=== PATIENT | female | born 1955 | race Caucasian/White ===

== ENCOUNTER 2019-03-02 17:08 | Emergency (ER) | payer MEDICAID ==
--- NOTE | 2019-03-02 17:33 | EDM.PDOC ---
ED HPI GENERAL MEDICAL PROBLEM - General Chief Complaint: Chest Pain Stated Complaint: CHEST PAIN AND SHORTNESS OF BREATH Time Seen by Provider: 03/02/19 17:17 - History of Present Illness INITIAL COMMENTS - FREE TEXT/NARRATIVE: HISTORY AND PHYSICAL: History of present illness: The patient is a 63-year-old female who has a history of insulin-requiring diabetes hypertension chronic pain and depression anxiety and who lives in [place] but who spent a week with her family in [place] and then came here to [place] where her daughter and son live to visit and has had a two-week history of low energy feeling depressed anxious intermittently having episodes of lightheadedness poor urine output poor by mouth intake feeling like her extremities are swollen and feeling on edge. The patient said that the whole week she was in [place] all she wanted to do was sleep and she had no energy and she says that when she left [place] to try to get refills on her prescriptions and was not able to get refills on a number of them. She says she has been out of her medication for depression and anxiety as well as some other of her medications since she left [place]. She tells me that she has a delivery coming from home with refills that she expects to arrive tomorrow. She says that she has had intermittent chest pressure and tightness which is bilateral associated with shortness of breath on and off for the last 2 weeks as well but she felt like it was worse today and her anxiety was getting more heightened with it. She has no abdominal pain but she has had some intermittent nausea and she's had no vomiting or diarrhea and then she says that she has had no dysuria frequency or urgency but she feels like she is not producing enough urine. She also tells me that she feels like her extremities are swollen especially her feet and toes. She has no leg size discrepancy no focal neurologic changes such as weakness numbness or tingling but overall feeling of generalized weakness and malaise. She says she is not dizzy but she is more lightheaded and she is not passing out or blacking out. She has no neck or back pain other than her chronic pain which when I ask her specifically where she says it is all over. She says that she normally is a smoker of a pack every 2 days and she says that since this is been going on she's been smoking less and less because she is sleeping more and more. Review of systems: As per history of present illness and below otherwise all systems reviewed and negative. Past medical history: As per history of present illness and as reviewed below otherwise noncontributory. Surgical history: As per history of present illness and as reviewed below otherwise noncontributory. Social history: No reported history of drug or alcohol abuse. Family history: As per history of present illness and as reviewed below otherwise noncontributory. Physical exam: General: Well-developed well-nourished overweight female who is nontoxic and vital signs are noted by me. She is very able to be redirected but intermittently she will get very anxious with her answers but she is polite cooperative and interactive. HEENT: Atraumatic, normocephalic, pupils reactive, negative for conjunctival pallor or scleral icterus, mucous membranes moist, throat clear, neck supple, nontender, trachea midline. Lungs: Clear to auscultation, breath sounds equal bilaterally, chest nontender. There is no worker breathing wheezing or stridor Heart: S1S2, regular rate and rhythm no overt murmur on my evaluation, negative for clicks, rubs, or JVD. Abdomen: Soft, nondistended, nontender. Negative for masses or hepatosplenomegaly. Negative for costovertebral tenderness. Bowel sounds are hypoactive and there is some tympany on percussion but no tenderness rebound or guarding Pelvis: Stable nontender. Genitourinary: Deferred. Rectal: Deferred. Extremities: Atraumatic, negative for cords or calf pain. Neurovascular unremarkable. There is no leg asymmetry and there is no pedal edema on my evaluation. Neuro: Awake, alert, oriented. Cranial nerves II through XII unremarkable. Cerebellum unremarkable. Motor and sensory unremarkable throughout. Exam nonfocal. Back: There are no midline step-offs tenderness or defects of the thoracic the lumbar spine no posterior rib or pelvis tenderness no CVA tenderness Skin: Turgor is normal and there are no overt rashes or lesions, the patient does have an overall pale appearance Diagnostics: EKG CBC CMP BNP troponin TSH UA with reflex chest x-ray Therapeutics: IV fluids, by mouth Ativan The daughter is now bedside and I have discussed our plan with her and she is very much in agreement. She says that she truly thinks that a lot of this has to do with the patient's lack of her anxiety medication which she is supposed to be getting tomorrow in the mail. She says that once she gets anxious a lot of other things kind of spiral with her mom. I did tell her and the patient that I could give her 1 dose of Ativan orally here at discharge as long as her testing results were within normal limits to try to help her to get through the rest of the evening. It appears from both the patient and the daughter that she does take Ativan for her anxiety at home Impression: Multiple vague complaints, generalized weakness and fatigue, anxiety, out of medications; mild dehydration Definitive disposition and diagnosis as appropriate pending reevaluation and review of above. generalized Pain Score (Numeric/FACES): 10 - Related Data Allergies Allergy/AdvReac Type Severity Reaction Status Date / Time Penicillins Allergy Cannot Verified 03/02/19 17:14 Remember Past Medical History Cardiovascular History: Reports: Heart Failure, Hypertension Respiratory History: Reports: COPD Gastrointestinal History: Reports: Chronic Diarrhea Musculoskeletal History: Reports: Back Pain, Chronic Psychiatric History: Reports: Anxiety Endocrine/Metabolic History: Reports: Diabetes, Type II - Infectious Disease History Infectious Disease History: Reports: Hepatitis C - Past Surgical History Female Surgical History: Reports: Tubal Ligation Other Musculoskeletal Surgeries/Procedures:: back surgery Social & Family History - Family History Family Medical History: Noncontributory ED ROS GENERAL - Review of Systems Review Of Systems: ROS reveals no pertinent complaints other than HPI. ED EXAM, GENERAL - Physical Exam Exam: See Below (See dictation) Course - Vital Signs Last Recorded V/S: Last Vital Signs Temp 36.0 C 03/02/19 17:14 Pulse 89 03/02/19 17:14 Resp 20 03/02/19 17:14 BP 113/53 L 03/02/19 17:14 Pulse Ox 97 03/02/19 17:14 - Orders/Labs/Meds Orders: Active Orders 24 hr Category Date Time Status Cardiac Monitoring [RC] . DIRECTED Care 03/02/19 17:27 Active EKG 12 Lead [EKG Documentation Completion] [RC] STAT Care 03/02/19 17:36 Active Pulse Oximetry [RC] ASDIRECTED Care 03/02/19 17:27 Active UA RFX SEBASTIEN AND CULT IF INDIC [URIN] Stat Lab 03/02/19 17:28 Ordered Sodium Chloride 0.9% [Normal Saline] 1,000 ml Med 03/02/19 18:48 Active IV STAT Sodium Chloride 0.9% [Saline Flush] Med 03/02/19 18:48 Active 10 ml FLUSH ASDIRECTED PRN Sodium Chloride 0.9% [Saline Flush] Med 03/02/19 18:48 Active 2.5 ml FLUSH ASDIRECTED PRN Saline Lock Insert [OM.PC] Stat Oth 03/02/19 18:47 Ordered Medication Orders Sodium Chloride (Normal Saline) 1,000 mls @ 999 mls/hr IV STAT ONE Stop: 03/02/19 19:48 Sodium Chloride (Saline Flush) 10 ml FLUSH ASDIRECTED PRN PRN Reason: Keep Vein Open Sodium Chloride (Saline Flush) 2.5 ml FLUSH ASDIRECTED PRN PRN Reason: Keep Vein Open Labs: Laboratory Tests 03/02/19 03/02/19 03/02/19 Range/Units 17:37 17:37 17:37 WBC 11.59 H (4.0-11.0) K/uL RBC 4.59 (4.30-5.90) M/uL Hgb 12.3 (12.0-16.0) g/dL Hct 37.8 (36.0-46.0) % MCV 82.4 (80.0-98.0) fL MCH 26.8 L (27.0-32.0) pg MCHC 32.5 (31.0-37.0) g/dL RDW Std Deviation 43.0 (28.0-62.0) fl RDW Coeff of Shmuel 14 (11.0-15.0) % Plt Count 279 (150-400) K/uL MPV 9.20 (7.40-12.00) fL Neut % (Auto) 48.5 (48.0-80.0) % Lymph % (Auto) 40.2 H (16.0-40.0) % [place] % (Auto) 8.5 (0.0-15.0) % Eos % (Auto) 2.4 (0.0-7.0) % Baso % (Auto) 0.4 (0.0-1.5) % Neut # (Auto) 5.6 (1.4-5.7) K/uL Lymph # (Auto) 4.7 H (0.6-2.4) K/uL [place] # (Auto) 1.0 H (0.0-0.8) K/uL Eos # (Auto) 0.3 (0.0-0.7) K/uL Baso # (Auto) 0.1 (0.0-0.1) K/uL Nucleated RBC % 0.0 /100WBC Nucleated RBCs # 0 K/uL Sodium 139 (136-145) mmol/L Potassium 3.4 L (3.5-5.1) mmol/L Chloride 103 (98-107) mmol/L Carbon Dioxide 23.0 (21.0-32.0) mmol/L BUN 20 H (7.0-18.0) mg/dL Creatinine 1.2 H (0.6-1.0) mg/dL Est Cr Clr Drug Dosing 43.74 mL/min Estimated GFR (MDRD) 45.5 ml/min Glucose 74 (74-106) mg/dL Calcium 9.6 (8.5-10.1) mg/dL Total Bilirubin 0.3 (0.2-1.0) mg/dL AST 21 (15-37) IU/L ALT 30 (14-63) IU/L Alkaline Phosphatase 133 H (46-116) U/L Troponin I < 0.050 (0.000-0.056) ng/mL B-Natriuretic Peptide 15 (<100) PG/ML Total Protein 7.7 (6.4-8.2) g/dL Albumin 3.9 (3.4-5.0) g/dL Globulin 3.8 (2.6-4.0) g/dL Albumin/Globulin Ratio 1.0 (0.9-1.6) TSH 3rd Generation 2.01 (0.36-3.74) uIU/mL Meds: Medications Generic Name Dose Route Start Last Admin Trade Name Freq PRN Reason Stop Dose Admin Sodium Chloride 1,000 mls @ 999 mls/hr 03/02/19 18:48 Normal Saline IV 03/02/19 19:48 STAT ONE Sodium Chloride 10 ml 03/02/19 18:48 Saline Flush FLUSH ASDIRECTED PRN Keep Vein Open Sodium Chloride 2.5 ml 03/02/19 18:48 Saline Flush FLUSH ASDIRECTED PRN Keep Vein Open Discontinued Medications Generic Name Dose Route Start Last Admin Trade Name Freq PRN Reason Stop Dose Admin Lorazepam 1 mg 03/02/19 18:48 Ativan PO 03/02/19 18:49 ONETIME ONE Departure - Departure Time of Disposition: 19:15 Disposition: Home, Self-Care 01 Condition: Good Clinical Impression: Anxiety, Malaise and fatigue - Discharge Information Referrals: PCP,Unknown [Primary Care Provider] - Forms: ED Department Discharge Additional Instructions: The following information is given to patients seen in the emergency department who are being discharged to home. This information is to outline your options for follow-up care. We provide all patients seen in our emergency department with a follow-up referral. The need for follow-up, as well as the timing and circumstances, are variable depending upon the specifics of your emergency department visit. If you don't have a primary care physician on staff, we will provide you with a referral. We always advise you to contact your personal physician following an emergency department visit to inform them of the circumstance of the visit and for follow-up with them and/or the need for any referrals to a consulting specialist. The emergency department will also refer you to a specialist when appropriate. This referral assures that you have the opportunity for followup care with a specialist. All of these measure are taken in an effort to provide you with optimal care, which includes your followup. Under all circumstances we always encourage you to contact your private physician who remains a resource for coordinating your care. When calling for followup care, please make the office aware that this follow-up is from your recent emergency room visit. If for any reason you are refused follow-up, please contact the [facility] emergency department at and ask to speak to the emergency department charge nurse. [facility] Primary care- [place] [address] Push hydration and once your medication arrives tomorrow please restart your meds. If you plan on staying in the area please connect with one of our clinic providers for reevaluation further care and refills on her prescriptions. Return to ER as needed and as discussed - My Orders Last 24 Hours: My Active Orders 03/02/19 17:27 Cardiac Monitoring [RC] . DIRECTED Pulse Oximetry [RC] ASDIRECTED 03/02/19 17:28 UA RFX SEBASTIEN AND CULT IF INDIC [URIN] Stat 03/02/19 17:36 EKG 12 Lead [EKG Documentation Completion] [RC] STAT 03/02/19 18:47 Saline Lock Insert [OM.PC] Stat 03/02/19 18:48 Sodium Chloride 0.9% [Normal Saline] 1,000 ml IV STAT Sodium Chloride 0.9% [Saline Flush] 10 ml FLUSH ASDIRECTED PRN Sodium Chloride 0.9% [Saline Flush] 2.5 ml FLUSH ASDIRECTED PRN - Assessment/Plan Last 24 Hours: My Active Orders 03/02/19 17:27 Cardiac Monitoring [RC] . DIRECTED Pulse Oximetry [RC] ASDIRECTED 03/02/19 17:28 UA RFX SEBASTIEN AND CULT IF INDIC [URIN] Stat 03/02/19 17:36 EKG 12 Lead [EKG Documentation Completion] [RC] STAT 03/02/19 18:47 Saline Lock Insert [OM.PC] Stat 03/02/19 18:48 Sodium Chloride 0.9% [Normal Saline] 1,000 ml IV STAT Sodium Chloride 0.9% [Saline Flush] 10 ml FLUSH ASDIRECTED PRN Sodium Chloride 0.9% [Saline Flush] 2.5 ml FLUSH ASDIRECTED PRN
[2019-03-02 18:12] LABS: BLOOD UREA NITROGEN,BUN 20 mg/dL (7.0-18.0); CHLORIDE,CL 103 mmol/L (98-107); GLUCOSE RANDOM 74 mg/dL (74-106); POTASSIUM,K 3.4 mmol/L (3.5-5.1); SODIUM,NA 139 mmol/L (136-145)
[2019-03-02] MEDS ORDERED: Sodium Chloride 0.9% 1,000 ML IV ONE (18:48)
[2019-03-02] MEDS ORDERED: LORazepam 1 MG Tab PO ONE (18:48)
[2019-03-02] MEDS ORDERED: Sodium Chloride 0.9% 2.5 ML Syringe FLUSH PRN (18:48)
[2019-03-02] MEDS ORDERED: Sodium Chloride 0.9% 10 ML Syringe FLUSH PRN (18:48)
--- NOTE | 2019-03-02 18:56 | CR ---
INDICATION: Pain/shortness of breath. TECHNIQUE: Chest 1 view. COMPARISON: None FINDINGS: Cardiovascular and mediastinum: Heart size and vasculature are normal in caliber and appearance. Mediastinum is within normal limits. Lungs and pleural space: Lungs are clear. No sign of infiltrate or mass. No sign of pleural effusion. No pneumothorax. Bones and soft tissues: No significant findings. IMPRESSION: Unremarkable chest. Dictated by: Ran Lopez MD @ 03/02/2019 18:55:11 (Electronically Signed)
== END 2019-03-02 20:24 | disposition home or self-care (01) ==
LOC: MW.ED 17:08
DX: E86.0 Dehydration (principal); F41.9 Anxiety disorder, unspecified; R53.1 Weakness; R53.81 Other malaise; I11.0 Hypertensive heart disease with heart failure; I50.9 Heart failure, unspecified; E11.9 Type 2 diabetes mellitus without complications; Z88.0 Allergy status to penicillin; Z79.4 Long term (current) use of insulin; Z98.51 Tubal ligation status
CPT/HCPCS: 36415; 71045; 80053; 81003; 83880; 84443; 84484; 85025; 93005; 96360; 99285; A9270; J7040; 99284

== ENCOUNTER 2024-02-13 13:50 | Emergency (ER) | payer MEDICARE, MEDICAID | END 2024-02-13 14:32 | disposition home or self-care (01) | LOC: MW.ED 13:50 | DX: L30.4 Erythema intertrigo (principal); I11.0 Hypertensive heart disease with heart failure; I50.9 Heart failure, unspecified; E11.9 Type 2 diabetes mellitus without complications; Z88.0 Allergy status to penicillin; Z79.82 Long term (current) use of aspirin; Z79.84 Long term (current) use of oral hypoglycemic drugs; Z79.899 Other long term (current) drug therapy; Z79.4 Long term (current) use of insulin; Z75.8 Other problems related to medical facilities and other health care | CPT/HCPCS: 99282 ==

== ENCOUNTER 2024-05-06 18:35 | Emergency (ER) | payer MEDICAID, MEDICARE | END 2024-05-06 20:45 | disposition home or self-care (01) | LOC: MW.ED 18:35 | DX: M25.561 Pain in right knee (principal); I11.0 Hypertensive heart disease with heart failure; I50.9 Heart failure, unspecified; J44.9 Chronic obstructive pulmonary disease, unspecified; E11.9 Type 2 diabetes mellitus without complications; Z86.73 Personal history of transient ischemic attack (TIA), and cerebral infarction without residual deficits; Z79.4 Long term (current) use of insulin; Z79.84 Long term (current) use of oral hypoglycemic drugs; Z79.899 Other long term (current) drug therapy; Z79.82 Long term (current) use of aspirin; Z88.0 Allergy status to penicillin; Z75.8 Other problems related to medical facilities and other health care | CPT/HCPCS: 73562-26-RT; 73562-RT; 93970; 93970-26; 99282; 99284 ==

== ENCOUNTER 2024-09-12 17:17 | Emergency (ER) | payer MEDICARE ==
[2024-09-12] MEDS ORDERED: Sodium Chloride 0.9% 1,000 ML IV ONE (17:31)
[2024-09-12 17:56] LABS: BASOPHILS ABSOLUTE AUTO 0.07 K/uL (0.00-0.20); BASOPHILS PERCENT AUTO 0.7 % (0.0-1.0); EOSINOPHILS ABSOLUTE AUTO 0.35 K/uL (0.00-0.45); EOSINOPHILS PERCENT AUTO 3.7 % (0.0-6.0); HEMATOCRIT 31.5 % (37.0-47.0); HEMOGLOBIN 10.5 g/dL (12.0-16.0); IMMATURE GRAN ABSOLUTE AUTO 0.15 K/uL (0.00-0.05); IMMATURE GRAN PERCENT AUTO 1.6 % (0.0-0.4); LYMPHOCYTES ABSOLUTE AUTO 3.12 K/uL (1.00-4.80); LYMPHOCYTES PERCENT AUTO 33.2 % (24.0-44.0); MEAN CORPUSCULAR HEMOGLOBIN 28.2 pg (28.0-32.0); MEAN CORPUSCULAR HGB CONC 33.3 g/dL (32.0-36.0); MEAN CORPUSCULAR VOLUME 84.7 fL (83.0-99.0); MEAN PLATELET VOLUME 9.4 fL (9.4-12.3); MONOCYTES PERCENT AUTO 7.4 % (0.0-8.0); NEUTROPHILS ABSOLUTE AUTO 5.02 K/uL (1.80-7.70); NEUTROPHILS PERCENT AUTO 53.4 % (41.0-71.0); PLATELET COUNT,PLT 196 K/uL (150-400); RED BLOOD CELL COUNT 3.72 M/uL (4.10-5.30); WHITE BLOOD CELL COUNT,WBC 9.41 K/uL (3.9-11.3)
[2024-09-12 18:09] LABS: INR 0.99 (0.86-1.11)
[2024-09-12 18:43] LABS: ALANINE AMINOTRANSFERASE,ALT 40 IU/L (14-63); ALBUMIN 3.5 g/dL (3.4-5.0); ALKALINE PHOSPHATASE 176 U/L (46-116); ASPARTATE AMNIOTRANSFERASE,AST 26 IU/L (15-37); BILIRUBIN TOTAL 0.2 mg/dL (0.2-1.0); BLOOD UREA NITROGEN,BUN 13 mg/dL (7.0-18.0); CALCIUM 9.3 mg/dL (8.5-10.1); CARBON DIOXIDE,CO2 26.4 mmol/L (21.0-32.0); CHLORIDE,CL 99 mmol/L (98-107); CREATININE 1.3 mg/dL (0.6-1.0); GLUCOSE RANDOM 179 mg/dL (74-106); LIPASE 52 U/L (16-77); MAGNESIUM 1.6 mg/dL (1.8-2.4); POTASSIUM,K 4.3 mmol/L (3.5-5.1); PRO B-TYPE NATRIUR PEPT,BNPPRO 61 pg/mL (0-125); PROTEIN TOTAL,TP 7.1 g/dL (6.4-8.2); SODIUM,NA 134 mmol/L (136-145)
[2024-09-12 18:45] LABS: ESTIMATED GFR 45 mL/min (>60)
[2024-09-12] MEDS: Ondansetron 4 MG/2 ML SDV IVPUSH ONE (20:43)
[2024-09-12] MEDS: Sodium Chloride 0.9% 500 ML IV SCH (20:44)
[2024-09-12] MEDS: Ondansetron 4 MG Tab.DIS PO ONE (21:33)
== END 2024-09-12 21:46 | disposition home or self-care (01) ==
LOC: MW.ED 17:17
DX: R55 Syncope and collapse (principal); D64.9 Anemia, unspecified; I11.0 Hypertensive heart disease with heart failure; I50.9 Heart failure, unspecified; E11.9 Type 2 diabetes mellitus without complications; Z86.73 Personal history of transient ischemic attack (TIA), and cerebral infarction without residual deficits; Z88.0 Allergy status to penicillin; Z79.82 Long term (current) use of aspirin; Z79.4 Long term (current) use of insulin; Z79.84 Long term (current) use of oral hypoglycemic drugs; Z79.899 Other long term (current) drug therapy; Z75.8 Other problems related to medical facilities and other health care
CPT/HCPCS: 36415; 70450; 71045; 80053; 83690; 83735; 83880; 84484; 85025; 85610; 99284; A9270; J2405; J7040